=== PATIENT | female | born 1945 ===

== ENCOUNTER 2019-04-08 08:11 | Outpatient (REF) | payer SELFPAY ==
[2019-04-08 12:25] LABS: Estmated Average Glucose 128; Hemoglobin A1C 6.1 % (4.0-6.0)
[2019-04-08 13:44] LABS: Cholesterol 196 mg/dL (0-200); Glucose 91 mg/dL (65-115); HDL Cholesterol 40 mg/dL (60-100); LDL Cholesterol Calculated 110 mg/dL (50-129); LDL HDL Ratio 2.75 RATIO (0.00-3.22); Triglycerides 232 mg/dL (0-150)
== END 2019-04-08 08:12 | disposition home or self-care (01) ==
LOC: LAB 08:11
PROVIDERS: Visit Provider Dermatology
DX: Z01.89 Encounter for other specified special examinations (principal)
CPT/HCPCS: 80061; 82947; 83036

== ENCOUNTER 2020-10-15 10:51 | Outpatient (CLI) | payer MEDICARE, SELFPAY ==
--- NOTE | 2020-10-15 11:04 | ECG_ITS ---
[facility] Test Date: 2020-10-15 Pat Name: Gloria Rojas Department: Room: Gender: Female Claim Benefit Specialist: : 1945 Requested By: Eugenia Dukes Order Number: [id number] Pato MD: Riley Weathers M.D. Interpretive Statements NAME OF STUDY: TREADMILL STRESS ECHOCARDIOGRAM INDICATION: [NEW ONSET AFIB, ]Atrial fibrillation EXERCISE DATA: The patient was exercised by Rudolph protocol. Baseline heart rate was 116 beats per minute. Baseline blood pressure was 135/73 millimeters of mercury. Target heart rate was 124 beats per minute. Maximum heart rate achieved was 169, which was 136% of the target heart rate. Maximum blood pressure was 136/76 millimeters of mercury. Total exercise time was 3 minutes and 10 seconds. Maximum METs achieved was 7, maximum VO2 was 24.5. The reason for ending the test was target heart rate achieved. The patient complained of shortness of breath during the stress test, which then resolved at the end of the test. ELECTROCARDIOGRAM: BASELINE: Showed atrial fibrillation with RVR, normal axis, no significant ST-T changes at the baseline noted. [] EXERCISE: At the peak exercise level, No significant ST-T changes suggestive of ischemia noted. [] RECOVERY: During the recovery period, heart rate dropped appropriately. No significant ST-T changes in the recovery suggestive of ischemia noted. [] CONCLUSION: 1. Exercise capacity fair. 2. Heart rate response was appropriate. 3. Blood pressure response was appropriate. 4. Symptoms not suggestive of ischemia. 5. Electrocardiogram test was not suggestive of ischemia. Electronically Signed On 11-11-2020 12:53:23 CDT by Riley Weathers M.D. [id number]
[2020-10-15 11:15] VITALS: BMI 27.3
--- NOTE | 2020-10-15 11:55 | USCV_ITS ---
Stress Echo Gloria Rojas Age: 75 Gender: F : 1945 Exam Date: 10/15/2020 12:03 Ordering Phys: Eugenia Granger MD Technologist: Exam Location: [facility] – [place], [place] Indication: NEW ONSET A FIB Rhythm: Sinus Patient History: NEW ONSET AFIB 1 MONTH AGO Cardiac Medications: BETA TU/XARELTO Medications in past 24 hours: XARELTO Contrast: Agitated Saline Stress Results Protocol: Rudolph Total dose(mL): Exercise Duration (min:sec): 3:10 METS: 7 Resting HR: 106 Resting BP: 135 / 73 Peak HR: 169 Peak BP: 140 / 76 Max Predicted HR: 146 116 % Max Predicted HR Target HR: 124 Double Product: 15036 Stress Summary: SOB WHILE ON THE TREADMILL AFTER 8 MINUTES THAT RESOLVED QUICKLY DURING RECOVERY. BP Response: NORMAL Reason for Termination: TARGET HR REACHED Cardiac Symptoms: SOB ECG Analysis Resting ECG: Atrial fibrillation with RVR Stress ECG: Atrial fibrillation with RVR. No evidence of ischemia Arrhythmia: None MEASUREMENTS (Male/Female) Normal Values FINDINGS On baseline, LV systolic function is borderline normal with EF of 50 to 55%. Target heart rate was 124 bpm. Patient achieved maximum heart rate of 169 bpm which was 115% of maximum predicted heart rate. Patient exercised for a total of 3 minutes and 10 seconds. Images obtained above target heart rate show appropriate increase in myocardial contractility without any regional wall motion abnormalities. No evidence of ischemia is noted. CONCLUSIONS 1. Normal exercise stress echocardiogram with no evidence of ischemia 2. Patient was in atrial fibrialltion with RVR. 3. Tachycardic heart rate response. Normal heart rate response Riley Weathers MD (Electronically Signed) Final Date: 22 October 2020 16:25 S
[2020-10-15 12:19] VITALS: BP 111/74; PULSE 98
== END 2020-10-15 10:52 | disposition home or self-care (01) ==
LOC: CDL 10:56
PROVIDERS: PCP Family Medicine; Visit Provider Family Medicine
DX: I48.91 Unspecified atrial fibrillation (principal)
CPT/HCPCS: 93017; 93350

== ENCOUNTER 2020-11-23 09:14 | Outpatient (CLI) | payer MEDICARE, SELFPAY ==
--- NOTE | 2020-11-23 09:30 | USCV_ITS ---
Gloria Rojas Age: 75 Gender: F : 1945 Exam Date: 11/23/2020 09:36 Ordering Phys: Riley Weathers M.D ([email or web address]) Technologist: Leeanne Carrington Exam Location: [facility] – [place] Indication: AFIB AND SOB BP: 117 / 65 HR: 88 Rhythm: Atrial fibrillation Technical Quality: Adequate MEASUREMENTS (Male / Female) Normal Values 2D ECHO LV Diastolic Diameter PLAX 4.0 cm 4.2 - 5.9 / 3.9 - 5.3 cm LV Systolic Diameter PLAX 2.9 cm LV Chamber Size 3.1 cm IVS Diastolic Thickness 1.1 cm 0.6 - 1.0 / 0.6 - 0.9 cm IVS Systolic Thickness 1.3 cm LVPW Diastolic Thickness 1.1 cm 0.6 - 1.0 / 0.6 - 0.9 cm LVPW Systolic Thickness 1.3 cm RV Chamber Size 3.2 cm LVOT Diameter 2.0 cm LV Ejection Fraction 2D Teich 51.4 % LV Ejection Fraction MOD 2C 58.3 % LV Ejection Fraction 2C AL 55.7 % LA Diameter 3.1 cm LA Width 3.6 cm LA Height 6.4 cm RA Width 3.5 cm RA Height 5.2 cm Aorta at Sinotubular Diameter 2.7 cm M-MODE LV Diastolic Diameter MM 4.9 cm 4.2 - 5.9 / 3.9 - 5.3 cm LV Systolic Diameter MM 3.7 cm LV Ejection Fraction MM Teich 49.2 % IVS Diastolic Thickness MM 0.6 cm 0.6 - 1.0 / 0.6 - 0.9 cm IVS Systolic Thickness MM 1.6 cm LVPW Diastolic Thickness MM 1.3 cm 0.6 - 1.0 / 0.6 - 0.9 cm LVPW Systolic Thickness MM 2.2 cm MV E Point Septal Separation 1.4 cm DOPPLER AV Peak Velocity 107.3 cm/s LVOT Peak Velocity 77.0 cm/s AV Area Cont Eq vti 1.8 cm squared AV Area Cont Eq pk 2.3 cm squared MV Area PHT 2.7 cm squared Mitral E to A Ratio 17.8 MV E' Velocity 42.5 cm/s Mitral E to MV E' Ratio 7.0 Mitral E to LV E' Lateral Ratio 8.7 Mitral E to LV E' Septal Ratio 5.9 TR Peak Velocity 202.3 cm/s TR Peak Gradient 16.4 mmHg TR Mean Velocity 164.6 cm/s TR Mean Gradient 11.5 mmHg TR Velocity Time Integral 55.1 cm TV Peak E Velocity 62.0 cm/s Right Atrial Pressure 3.0 mmHg Pulmonary Artery Systolic Pressu 19.4 mmHg PV Peak Velocity 54.0 cm/s RV Acceleration Time 0.1 s RV Ejection Time 0.3 s RV AcT/ET 0.4 FINDINGS Left Ventricle Normal left ventricular size. LV systolic function is mild to moderately reduced with EF of 35-40%. Mild to moderate global hypokinesis is noted. Diastolic function is indeterminate because of atrial fibrillation Right Ventricle The right ventricle is normal in size and function. Right Atrium The right atrium is normal in size. Left Atrium The left atrium is dilated Mitral Valve Structurally normal mitral valve without significant stenosis or prolapse. There is mild mitral regurgitation. Aortic Valve Structurally normal aortic valve without significant sclerosis or stenosis. There is no aortic regurgitation. Tricuspid Valve Structurally normal tricuspid valve without signifmILicant stenosis . Mild tricuspid regurgitation. Pulmonary artery systolic pressure is normal. Pulmonic Valve Structurally normal pulmonic valve without significant stenosis. There is no pulmonic regurgitation. Pericardium Normal pericardium without effusion. Aorta Normal ascending aorta dimension. CONCLUSIONS LV systolic function is mildto moderately reduced with EF of 35- 40% Diastolic function is indeterminate because of atrial fibrillation The left atrium is dilated Mild mitral regurgitation Mild tricuspid regurgitation No comparison studies are available Riley Weathers MD (Electronically Signed) Final Date: 29 November 2020 10:19 S
== END 2020-11-23 09:15 | disposition home or self-care (01) ==
PROVIDERS: PCP Family Medicine; Visit Provider Internal Medicine
DX: R06.02 Shortness of breath (principal); I48.91 Unspecified atrial fibrillation; I08.1 Rheumatic disorders of both mitral and tricuspid valves
CPT/HCPCS: 93306

== ENCOUNTER → 2021-12-05 14:57 | Outpatient (BNVA) | payer MEDICARE, SELFPAY | PROVIDERS: PCP Family Medicine; Visit Provider Internal Medicine | DX: I48.91 Unspecified atrial fibrillation (principal); Z79.01 Long term (current) use of anticoagulants | CPT/HCPCS: 99213 ==

== ENCOUNTER → 2022-09-04 13:21 | Outpatient (BNVA) | payer MEDICARE, SELFPAY | PROVIDERS: PCP Family Medicine; Visit Provider Internal Medicine | DX: I48.91 Unspecified atrial fibrillation (principal); Z79.01 Long term (current) use of anticoagulants | CPT/HCPCS: 99214 ==

== ENCOUNTER → 2023-06-04 13:56 | Outpatient (BNVA) | payer MEDICARE, SELFPAY | PROVIDERS: PCP Family Medicine; Visit Provider Internal Medicine | DX: I48.91 Unspecified atrial fibrillation (principal); Z79.01 Long term (current) use of anticoagulants | CPT/HCPCS: 99214 ==

== ENCOUNTER → 2024-03-03 15:04 | Outpatient (BNVA) | payer MEDICARE, SELFPAY | PROVIDERS: PCP Family Medicine; Visit Provider Internal Medicine | DX: I48.91 Unspecified atrial fibrillation (principal); Z79.01 Long term (current) use of anticoagulants | CPT/HCPCS: 99213 ==

== ENCOUNTER → 2024-12-01 15:23 | Outpatient (BNVA) | payer MEDICARE, SELFPAY | PROVIDERS: PCP Family Medicine; Visit Provider Internal Medicine | DX: I48.91 Unspecified atrial fibrillation (principal); Z79.01 Long term (current) use of anticoagulants | CPT/HCPCS: 99213 ==